=== PATIENT | male | born 1940 | race Caucasian/White ===

== ENCOUNTER 2017-04-29 17:19 | Emergency (ER) | payer OTHER ==
[2017-04-29 18:03] VITALS: BP 139/76; PULSE 76; TEMP 97.6; BMI 32.8
--- NOTE | 2017-04-29 18:29 | PDOC ---
History of Present Illness - General Chief Complaint: Injury Stated Complaint: INJURY Time Seen by Provider: 04/29/17 18:00 History Source: Patient, Care Provider - History of Present Illness Initial Comments: 04/29/17 19:09 77 with DM and PArkinson's present to the ED with private Nurse for after falling on his face. No LOC. Patient claims he lost his footing. Nurse says that patient often fall due to his parkinson's and diabetic neuropathy. PAtient denies chest pain, loc, sob. Patient declares not being in pain. 04/29/17 20:11 04/29/17 20:14 Past History - Past Medical History Allergies/Adverse Reactions: Allergies Allergy/AdvReac Type Severity Reaction Status Date / Time No Known Allergies Allergy Verified 04/29/17 17:49 Home Medications: Ambulatory Orders Aspirin Coated [Ecotrin -] 81 mg PO DAILY 04/29/17 Carbidopa/Levodopa 25/100 [Sinemet 25/100 -] 1 each PO TID 04/29/17 Eplerenone 50 mg PO DAILY 04/29/17 Finasteride [Proscar -] 5 mg PO DAILY 04/29/17 Furosemide [Lasix] 40 mg PO DAILY 04/29/17 Meloxicam 7.5 mg PO DAILY 04/29/17 Olmesartan Medoxomil [Benicar (Nf)] 20 mg PO DAILY 04/29/17 Rosuvastatin Calcium [Crestor] 10 mg PO Q2D 04/29/17 Sertraline HCl 50 mg PO HS 04/29/17 Silodosin [Rapaflo] 8 mg PO DAILY 04/29/17 Cardiac Disorders: Yes HTN: Yes Hypercholesterolemia: Yes Other medical history: parkinson - Suicide/Smoking/Psychosocial Hx Smoking History: Former smoker Have you smoked in the past 12 months: No Information on smoking cessation initiated: No Hx Alcohol Use: No Drug/Substance Use Hx: No Substance Use Type: None Review of Systems - Review of Systems Able to Perform ROS?: Yes (limited) Is the patient limited [place] proficient: No HEENTM: No: Symptoms Reported Respiratory: No: Symptoms reported Cardiac (ROS): No: Symptoms Reported ABD/GI: No: Symptoms Reported : No: Symptoms Reported Musculoskeletal: No: Symptoms Reported Integumentary: No: Symptoms Reported Neurological: Yes: Pre-Existing Deficit. No: Symptoms reported *Physical Exam - Vital Signs Last Vital Signs Temp Pulse Resp BP Pulse Ox 97.6 F 76 20 139/76 97 04/29/17 17:38 04/29/17 17:38 04/29/17 17:38 04/29/17 17:38 04/29/17 17:38 - Physical Exam General Appearance: Yes: Nourished, Appropriately Dressed, Obese, Other (face and clothes covered in blood) HEENT: positive: YANETH, Normal Voice, Other (Nose obviously broken, deviated to the left. Teeth seemingly intact). negative: Photophobia Neck: negative: Tender Respiratory/Chest: positive: Lungs Clear, Normal Breath Sounds. negative: Chest Tender Cardiovascular: positive: Regular Rhythm, Regular Rate, S1, S2 Gastrointestinal/Abdominal: positive: Normal Bowel Sounds. negative: Tender Integumentary: positive: Normal Color. negative: Cyanotic ED Treatment Course - RADIOLOGY Radiology Studies Ordered: Category Date Time Status FACIAL BONES CT W/O CONTRAST [CT] Stat CT Scan 04/29/17 18:[address] WITHOUT CONTRAST [CT] Stat CT Scan 04/29/17 18:01 Ordered Medical Decision Making - Medical Decision Making 04/29/17 20:16 77M with Parkinsons and DM present after falling on his face at home in the presence of nurse. Ordered CT head and Face. and Pain control with percocet PAtient signed out to Dr. Copeland *DC/Admit/Observation/Transfer Diagnosis at time of Disposition: Blunt trauma of nose
--- NOTE | 2017-04-29 19:53 | PDOC ---
Attending Attestation - Resident Resident Name: Lloyd Gill - ED Attending Attestation I have performed the following: I have examined & evaluated the patient, The case was reviewed & discussed with the resident, I agree w/resident's findings & plan, Exceptions are as noted - HPI HPI: 04/29/17 19:48 s/p trip and fall presents with nasal bone deformity and bleeding. Fall Unwitnessed. - Physicial Exam PE: 04/29/17 19:52 *Physical Exam General Appearance: Yes: Appropriately Dressed. No: Apparent Distress, Intoxicated HEENT: positive: EOMI, YANETH, Nasal bone deformity, Normal Voice, TMs Normal, Pharynx Normal. negative: Pale Conjunctivae, Photophobia, Scleral Icterus (R), Scleral Icterus (L) Neck: positive: Trachea midline, Normal Thyroid, Supple. negative: Tender, Rigid, Carotid bruit, Stridor, Lymphadenopathy (R), Lymphadenopathy (L), Thyromegaly Respiratory/Chest: positive: Lungs Clear, Normal Breath Sounds. negative: Chest Tender, Respiratory Distress, Accessory Muscle Use, Labored Respiration, RES, Crackles, Rales, Rhonchi, Stridor, Wheezing, Dullness Cardiovascular: positive: Regular Rhythm, Regular Rate, S1, S2. negative: Edema , JVD, Murmur, Bradycardia, Tachycardia Vascular Pulses: Dorsalis-Pedis (R): 2+, Doralis-Pedis (L): 2+ Gastrointestinal/Abdominal: positive: Normal Bowel Sounds, Flat, Soft. negative : Tender, Organomegaly, Pulsatile Mass, Increased Bowel Sounds, Decreased BS, Distended, Guarding, Rebound, Hernia, Hepatomegaly, Spleenomegaly Lymphatic: negative: Adenopathy, Tenderness Musculoskeletal: positive: Normal Inspection. negative: CVA Tenderness, Decreased Range of Motion Extremity: positive: Normal Capillary Refill, Normal Inspection, Normal Range of Motion, Pelvis Stable. negative: Tender, Pedal Edema, Swelling, Erythema Integumentary: positive: Normal Color, Dry, Warm. 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 negative: EOM Palsy, Facial Droop, Sensory Deficit
--- NOTE | 2017-04-29 20:17 | PDOC ---
*Physical Exam - Vital Signs Last Vital Signs Temp Pulse Resp BP Pulse Ox 97.6 F 76 20 139/76 97 04/29/17 17:38 04/29/17 17:38 04/29/17 17:38 04/29/17 17:38 04/29/17 17:38 - Physical Exam General Appearance: Yes: Nourished, Appropriately Dressed HEENT: positive: Pharynx Normal, Other (5 cm scalp laceration; Significant clotted blood in nasopharynx;) Respiratory/Chest: positive: Lungs Clear Cardiovascular: positive: S1, S2 Neurologic: positive: Alert ED Treatment Course - LABORATORY CBC & Chemistry Diagram: 04/29/17 21:30 04/29/17 21:30 - Medications Given in the ED: ED Medications Discontinued Medications Generic Name Dose Route Start Last Admin Trade Name Freq PRN Reason Stop Dose Admin Oxycodone/Acetaminophen 2 combo 04/29/17 18:02 04/29/17 18:43 Percocet 5/325 - PO 04/29/17 18:03 2 combo ONCE ONE Administration Medical Decision Making - Medical Decision Making 04/29/17 20:11 Patient signed out by Dr. Gill (Resident) and Dr. Miller (Attending) Patient is a 77 y.o. male who presents following a fall @ home - uncertain if mechanical fall as patient has h/o diabetic neuropathy as well as Parkison's disease -- the latter making him a poor historian. 04/29/17 20:[address] Scan; added EKG as fall possibly 2/2 to cardiac vs. neurogenic vs. metabolic. EKG shows AFibrillation in with HR 84 consistent with previous EKG of 08/22/15. CMP shows no electrolyte abnormalities. CBC negative for anemia. 04/30/17 01:48 CT Head negative for acute intracranial process. Patient's scalp laceration cleaned and stapled. Patient counseled to return to Emergency Department for staple removal in 5 day or have vaishali removed by PCP or ENT at his follow-up appointments. Clinical decision made to discharge patient as patient has 24 hour care. At the time of discharge patient was alert, improved and discharged under the care of his aide. *DC/Admit/Observation/Transfer Diagnosis at time of Disposition: Blunt trauma of nose - Discharge Dispostion Disposition: HOME Condition at time of disposition: Fair Admit: No - Referrals Referrals: Ranjit Bearden MD [Primary Care Provider] - Ricky Vargas MD [Staff Physician] - - Patient Instructions Printed Discharge Instructions: DI for Laceration Repair of the Scalp, DI for Concussion Additional Instructions: Please make an appointment for ENT appointment on either next Wednesday or Wednesday. If your ENT is not available, referral information is included for Dr. Vargas. Vaishali can be removed next Wednesday or Wednesday either by ENT or your primary care doctor or you can return to the Emergency Department. Please return immediately to the Emergency Department should Mr. Torrez have any confusion, severe headache, or concerning symptoms.
[2017-04-29 22:06] LABS: BASOPHIL 0.2 % (0-2.0); EOSINOPHIL 1.2 % (0-4.5); MCH 29.4 pg (25.7-33.7); MEAN CELL VOLUME 86.5 fl (80-96); MEAN PLT VOLUME 9.3 fl (7.5-11.1); NEUTROPHILS 83.6 % (42.8-82.8); PLATELET COUNT 203 K/MM3 (134-434); RDW 14.2 % (11.9-15.9); WHITE BLOOD COUNT 14.7 K/mm3 (4.0-10.0)
[2017-04-29 22:32] LABS: ANION GAP 7 (8-16); CALCIUM 8.8 mg/dL (8.5-10.1); CO2 28 mmol/L (21-32); CREATININE 1.1 mg/dL (0.7-1.3); GLUCOSE,RANDOM 123 mg/dL (74-106); SGOT/AST 10 U/L (15-37); SGPT/ALT 16 U/L (12-78)
[2017-04-29 22:34] LABS: ALK PHOS 77 U/L (45-117); BILIRUBIN,TOTAL 0.5 mg/dL (0.2-1.0); CPK 63 IU/L (39-308); TOT PROT 7.2 g/dl (6.4-8.2); TROPONIN I < 0.02 ng/ml (0.00-0.05)
--- NOTE | 2017-04-30 10:05 | EKG ---
Test Reason : Blood Pressure : / mmHG Vent. Rate : 084 BPM Atrial Rate : 088 BPM P-R Int : 000 ms QRS Dur : 070 ms QT Int : 370 ms P-R-T Axes : 000 -10 025 degrees QTc Int : 437 ms ATRIAL FIBRILLATION LOW VOLTAGE QRS INFERIOR INFARCT , AGE UNDETERMINED CANNOT RULE OUT ANTERIOR INFARCT , AGE UNDETERMINED ABNORMAL ECG NO PREVIOUS ECGS AVAILABLE Confirmed by ELOY VILLA MD ([id number]) on 04/30/2017 10:04:36 AM Referred By: Confirmed By:ELOY VILLA MD
== END 2017-04-30 01:17 | disposition home or self-care (01) ==
LOC: JER 17:19
PROC: 0HQ0XZZ Repair Scalp Skin, External Approach (ICD-10-PCS; principal; 2017-04-29)
DX: S02.2XXA Fracture of nasal bones, initial encounter for closed fracture (principal); S01.01XA Laceration without foreign body of scalp, initial encounter; E11.40 Type 2 diabetes mellitus with diabetic neuropathy, unspecified; I10 Essential (primary) hypertension; E78.00 Pure hypercholesterolemia, unspecified; G20 Parkinson's disease; W18.39XA Other fall on same level, initial encounter; Y93.89 Activity, other specified; Y92.018 Other place in single-family (private) house as the place of occurrence of the external cause
CPT/HCPCS: 36415; 70450-TC; 70486-TC; 80053; 82550; 84484; 85025; 93005; 93010; 99282-25